=== PATIENT | male | born 1985 | race Caucasian/White ===

== ENCOUNTER 2019-07-29 18:44 | Emergency (ER) | payer BC ==
[2019-07-29 19:43] LABS: BASO # 0.1 (0.02-0.10); EOS # 0.1 (0.04-0.40); EOS % 0.5 % (0.0-4.0); HEMATOCRIT 44.9 % (42.0-52.0); HEMOGLOBIN 15.2 g/dL (13.5-18.0); MEAN CELL VOLUME 80 fl (78-100); MEAN CORPUSCULAR HEMOGLOBIN 27 pg (27-31); MEAN CORPUSCULAR HGB CONC 34 g/dL (33-37); MEAN PLATELET VOLUME 10.2 fl (7.4-10.4); MONO # 1.5 (0.20-0.80); PLATELET COUNT 374 K/mm3 (130-400); RED BLOOD COUNT 5.61 M/mm3 (4.20-5.60); RED CELL DISTRIBUTION WIDTH 13.7 % (11.5-14.5); WHITE BLOOD COUNT 14.6 K/mm3 (4.8-10.8)
[2019-07-29 19:49] LABS: ALBUMIN 4.7 g/dL (3.5-5.0)
[2019-07-29 19:50] LABS: POTASSIUM 3.8 mmol/L (3.5-5.1)
[2019-07-29 19:51] LABS: CALCIUM 10.1 mg/dL (8.3-10.5)
[2019-07-29 19:52] LABS: TOTAL PROTEIN 8.3 g/dL (6.4-8.3)
[2019-07-29 19:54] LABS: TOTAL BILIRUBIN 0.8 mg/dL (0.2-1.2)
[2019-07-29 21:43] LABS: URINE WBC 0 /hpf (0-3)
[2019-07-29 21:47] LABS: PH-URINE 5.5 (5.0 - 8.0); URINE APPEARANCE CLEAR; URINE BILIRUBIN NEGATIVE (NEGATIVE); URINE BLOOD NEGATIVE (NEGATIVE); URINE COLOR YELLOW; URINE GLUCOSE NEGATIVE (NEGATIVE); URINE KETONE NEGATIVE (NEGATIVE); URINE LEUKOCYTE ESTERASE NEGATIVE (NEGATIVE); URINE MUCUS PRESENT (NOT PRESENT); URINE NITRATE NEGATIVE (NEGATIVE); URINE PROTEIN(semi-quant) NEGATIVE (NEGATIVE); URINE UROBILINOGEN NORMAL (NORMAL)
[2019-07-29] MEDS ORDERED: AZITHROMYCIN 250MGPK PO (22:03)
[2019-07-29 22:07] VITALS: BP 147/80
== END 2019-07-29 22:12 | disposition home or self-care (01) ==
LOC: ED 18:44
PROVIDERS: Nurse Practitioner
DX: J18.9 Pneumonia, unspecified organism (principal); R11.2 Nausea with vomiting, unspecified
CPT/HCPCS: J7030